=== PATIENT | female | born 1970 | race Caucasian/White ===

== ENCOUNTER 2024-09-28 05:02 | Inpatient (IN) | payer OTHER ==
[2024-09-28] MEDS: HYDROmorphone 1 MG/ML 1 ML SYRINGE IVP STA ×2 (05:48→09:46)
[2024-09-28] MEDS: ACETAMINOPHEN IV (For NPO) 1,000 MG in EMPTY BAG 1 BAG IVPB ONE (06:05)
[2024-09-28 06:47] LABS: Basophils # (A) 0.05 10*3/uL (0.00-0.10); Basophils % (A) 0.5 %; Eosinophils # (A) 0.20 10*3/uL (0.04-0.35); Eosinophils % (A) 2.0 %; HCT 39.2 % (37.2-46.3); HGB 13.5 g/dL (12.0-15.0); Lymphocytes # (A) 2.17 10*3/uL (0.90-5.00); Lymphocytes % (A) 21.6 %; MCH 29.9 pg (27.0-32.0); MCHC 34.4 g/dL (32.0-37.0); MCV 86.7 fL (80.0-97.0); Monocytes # (A) 1.07 10*3/uL (0.20-1.00); Monocytes % (A) 10.6 %; Neutrophils # (A) 6.53 10*3/uL (1.80-7.70); Neutrophils % (A) 65.0 %; Platelet Count 213 10*3/uL (140-440); RBC 4.52 10*6/uL (4.10-5.20); RDW 12.9 % (11.5-14.5); WBC 10.05 10*3/uL (4.50-10.00)
--- NOTE | 2024-09-28 06:55 | XR ---
EXAM: XR Right Knee, 3 Views CLINICAL HISTORY: ITS.REASON XR Reason: pain, swelling TECHNIQUE: Three views of the right knee. COMPARISON: No relevant prior studies available. FINDINGS: Bones/joints: Suprapatellar soft tissue density which may reflect joint effusion and/or soft tissue swelling. Moderate narrowing of the patellofemoral joint with osteophyte formation. Diffuse demineralization of the bones. Moderate narrowing of the tibiofemoral joint with osteophyte formation. No acute fracture. No dislocation. Soft tissues: See above. IMPRESSION: 1. No gross acute bony abnormality. 2. Arthritic changes. 3. Small to moderate joint effusion/suprapatellar swelling
[2024-09-28 07:06] LABS: ALT 34 U/L (4-34); AST 28 U/L (14-36); African American GFR (CKD) >90 (>60 ml/min/1.73 sqM); Albumin 4.3 g/dL (3.5-5.0); Alkaline Phosphatase 102 U/L (38-126); Anion Gap 14 mmol/L; Blood Urea Nitrogen 9 mg/dL (7-17); Calcium 9.3 mg/dL (8.4-10.2); Carbon Dioxide 20 mmol/L (22-30); Chloride 104 mmol/L (98-107); Glucose 167 mg/dL (74-99); Non-African American GFR(CKD) >90 (>60 ml/min/1.73 sqM); Potassium 3.7 mmol/L (3.5-5.1); Sodium 138 mmol/L (137-145); Total Protein 7.7 g/dL (6.3-8.2)
--- NOTE | 2024-09-28 07:30 | US ---
EXAMINATION TYPE: US venous doppler duplex LE RT DATE OF EXAM: 09/28/2024 7:19 AM COMPARISON: NONE CLINICAL INDICATION: Female, 53 years old with history of pain, swelling; Rt leg/knee swelling since Saturday, no personal hx pf dvt, family hx of dvt, no thinners, Pain TECHNIQUE: The lower extremity deep venous system is examined utilizing real time linear array sonog shaggy with graded compression, color doppler sonography, and spectral doppler. SIDE PERFORMED: Right FINDINGS: VESSELS IMAGED: Common Femoral Vein Deep Femoral Vein Greater Saphenous Vein * Femoral Vein Popliteal Vein Small Saphenous Vein * Proximal Calf Veins (* superficial vessels) Right Leg: Negative for DVT, Color Doppler imaging shows patency of the vessels. Spectral waveforms are within normal limits. Calf vs limited IMPRESSION: No ultrasound evidence for deep venous thrombosis. [facility], , 09/28/2024 7:28 AM
[2024-09-28] MEDS ORDERED: NALOXONE 0.4 MG/ML 1 ML VIAL IV PRN (08:30)
--- NOTE | 2024-09-28 08:31 | ED ---
Lower Extremity Injury HPI - General Chief Complaint: Extremity Injury, Lower Stated Complaint: leg pain Time Seen by Provider: 09/28/24 05:29 Source: EMS Mode of arrival: EMS - History of Present Illness Initial Comments: 53-year-old female with recent thyroidectomy who presents to the emergency department reporting right leg pain. States that her pain started over the weekend and has gotten significantly worse to the point where she cannot bear weight on the right lower extremity. She has significant knee swelling. She is concerned for DVT as she recently had surgery. Patient found to have a fever upon arrival. She denies any trauma. No history of blood clots. Patient has not any blood thinners. No other alleviating, precipitating modifying factors - Related Data Home Medications Medication Instructions Recorded Confirmed Atorvastatin [Lipitor] 40 mg PO HS 09/28/24 09/28/24 Dulaglutide [Trulicity] 3 mg SQ FARRAR 09/28/24 09/28/24 Empagliflozin [Jardiance] 25 mg PO DAILY 09/28/24 09/28/24 Ergocalciferol [Vitamin D2 (1250 1,250 mcg PO MO 09/28/24 09/28/24 Mcg = 55975 Iu)] Liothyronine Sodium [Cytomel] 25 mcg PO BID 09/28/24 09/28/24 Metoprolol Tartrate [Lopressor] 50 mg PO BID 09/28/24 09/28/24 Potassium Chloride [Klor-Con M20] 20 meq PO DAILY 09/28/24 09/28/24 buPROPion HCL [Wellbutrin SR] 150 mg PO BID 09/28/24 09/28/24 traMADol HCl [Ultram] 50 mg PO QID PRN 09/28/24 09/28/24 Previous Rx's Medication Instructions Recorded Sennosides [Senokot] 8.6 mg PO BID PRN #90 tab 09/30/24 oxyCODONE-APAP 7.5-325MG [Percocet 1 tab PO Q4HR PRN 3 Days #18 tab 09/30/24 7.5-325 mg] Allergies Allergy/AdvReac Type Severity Reaction Status Date / Time aspirin Allergy Rash/Hives Verified 09/28/24 09:06 hydrochlorothiazide Allergy Anaphylaxis Verified 09/28/24 09:06 iodine Allergy Anaphylaxis Verified 09/28/24 09:06 ketorolac [From Toradol] Allergy Rash/Hives Verified 09/28/24 09:06 Penicillins Allergy Rash/Hives Verified 09/28/24 09:06 Review of Systems ROS Statement: Those systems with pertinent positive or pertinent negative responses have been documented in the HPI. ROS Other: All systems not noted in ROS Statement are negative. General Exam General appearance: alert, in no apparent distress Head exam: Present: atraumatic, normocephalic, normal inspection Eye exam: Present: normal appearance, PERRL, EOMI. Absent: scleral icterus, conjunctival injection, periorbital swelling ENT exam: Present: normal exam, mucous membranes moist Neck exam: Present: normal inspection. Absent: tenderness, meningismus, lymphadenopathy Respiratory exam: Present: normal lung sounds bilaterally. Absent: respiratory distress, wheezes, rales, rhonchi, stridor Cardiovascular Exam: Present: regular rate, normal rhythm, normal heart sounds. Absent: systolic murmur, diastolic murmur, rubs, gallop, clicks GI/Abdominal exam: Present: soft, normal bowel sounds. Absent: distended, tenderness, guarding, rebound, rigid Extremities exam: Present: tenderness (To palpation of the right knee. Large suprapatellar effusion), normal capillary refill. Absent: pedal edema, joint swelling, calf tenderness Back exam: Present: normal inspection Neurological exam: Present: alert, oriented X3, CN II-XII intact Psychiatric exam: Present: normal affect, normal mood Skin exam: Present: warm, dry, intact, normal color. Absent: rash Course Vital Signs 09/28/24 09/28/24 09/28/24 05:07 06:48 08:04 Temperature 100.4 F H 99.8 F H 98.5 F Pulse Rate 97 94 101 H Respiratory 18 17 Rate Blood Pressure 147/75 155/80 144/88 O2 Sat by Pulse 97 96 97 Oximetry 09/28/24 09:45 Temperature Pulse Rate 85 Respiratory 18 Rate Blood Pressure 136/92 O2 Sat by Pulse 97 Oximetry Medical Decision Making - Medical Decision Making Was pt. sent in by a medical professional or institution (, PA, ANIMAL IMPERSONATOR, urgent care, hospital, or shelter...) When possible be specific @ -No Did you speak to anyone other than the patient for history (EMS, parent, family, police, friend...)? What history was obtained from this source @ -Spoke with EMS for history Did you review nursing and triage notes (agree or disagree)? Why? @ -I reviewed and agree with nursing and triage notes Were old charts reviewed (outside hosp., previous admission, EMS record, old EKG, old radiological studies, urgent care reports/EKG's, shelter records)? Report findings @ -No old charts were reviewed Differential Diagnosis (chest pain, altered mental status, abdominal pain women, abdominal pain men, vaginal bleeding, weakness, fever, dyspnea, syncope, headache, dizziness, GI bleed, back pain, seizure, CVA, palpatations, mental health, musculoskeletal)? @ -Differential Musculoskeletal Muscular strain, contusion, ligament sprain, fracture, arthritis, septic arthritis, bursitis, cellulitis, muscle spasm, nerve compression, DVT, arterial occlusion, herpes zoster, electrolyte abnormality, tumor.... This is not meant to be in all inclusive list EKG interpreted by me (3pts min.). @ -Not done X-rays interpreted by me (1pt min.). @ -yes which demonstrates a fusion CT interpreted by me (1pt min.). @ -None done U/S interpreted by me (1pt. min.). @ -Yes which demonstrates no DVT What testing was considered but not performed or refused? (CT, X-rays, U/S, labs)? Why? @ -None What meds were considered but not given or refused? Why? @ -None Did you discuss the management of the patient with other professionals (professionals i.e. , PA, ANIMAL IMPERSONATOR, lab, RT, psych nurse, foster care social worker, gyroscope technician, teacher, lodge officer, case management social worker)? Give summary @ -Spoke with Dr. Preez who will admit the patient Was smoking cessation discussed for >3mins.? @ -No Was critical care preformed (if so, how long)? @ -No Were there social determinants of health that impacted care today? How? (Homelessness, low income, unemployed, alcoholism, drug addiction, transportation, low edu. Level, literacy, decrease access to med. care, correction, rehab)? @ -No Was there de-escalation of care discussed even if they declined (Discuss DNR or withdrawal of care, Hospice)? DNR status @ -No What co-morbidities impacted this encounter? (DM, HTN, Smoking, COPD, CAD, Cancer, CVA, ARF, Chemo, Hep., AIDS, mental health diagnosis, sleep apnea, morbid obesity)? @ -Thyroid cancer Was patient admitted / discharged? Hospital course, mention meds given and route, prescriptions, significant lab abnormalities, going to OR and other pertinent info. @ -Upon arrival patient seen and evaluated in bed 11. Thorough history and physical exam was performed. IV was established. Laboratory studies are performed. X-ray and ultrasound were performed of the patient's right leg. I did perform arthrocentesis. Sample is sent for culture and cell count. I did initiate the patient on cefepime and vancomycin. Patient will be admitted. Spoke with Dr. Perez. Orthopedics will be placed on consult Undiagnosed new problem with uncertain prognosis? @ -No Drug Therapy requiring intensive monitoring for toxicity (Heparin, Nitro, Insulin, Cardizem)? @ -No Were any procedures done? @ -No Diagnosis/symptom? @ -Acute right knee pain, evaluation for septic arthritis Acute, or Chronic, or Acute on Chronic? @ -Acute Uncomplicated (without systemic symptoms) or Complicated (systemic symptoms)? @ -Complicated Side effects of treatment? @ -No Exacerbation, Progression, or Severe Exacerbation? @ -No Poses a threat to life or bodily function? How? (Chest pain, USA, CT, pneumonia, PE, COPD, DKA, ARF, appy, cholecystitis, CVA, Diverticulitis, Homicidal, Suicidal, threat to staff... and all critical care pts) @ -No - Lab Data Result diagrams: 09/30/24 03:26 09/30/24 03:26 Lab Results 09/28/24 09/28/24 09/28/24 Range/Units 06:20 06:20 06:20 WBC 10.05 H (4.50-10.00) 10*3/uL RBC 4.52 (4.10-5.20) 10*6/uL Hgb 13.5 (12.0-15.0) g/dL Hct 39.2 (37.2-46.3) % MCV 86.7 (80.0-97.0) fL MCH 29.9 (27.0-32.0) pg MCHC 34.4 (32.0-37.0) g/dL Plt Count 213 (140-440) 10*3/uL MPV 10.1 (9.5-12.2) fL Immature Gran % (Auto) 0.3 % Neutrophils % 65.0 % Lymphocytes % 21.6 % Monocytes % 10.6 % Eosinophils % 2.0 % Basophils % 0.5 % Immature Gran # 0.03 (0.00-0.04) 10*3/uL Neutrophils # 6.53 (1.80-7.70) 10*3/uL Lymphocytes # 2.17 (0.90-5.00) 10*3/uL Monocytes # 1.07 H (0.20-1.00) 10*3/uL Eosinophils # 0.20 (0.04-0.35) 10*3/uL Basophils # 0.05 (0.00-0.10) 10*3/uL ESR 46 H (0-30) mm/Hr Sodium 138 (137-145) mmol/L Potassium 3.7 (3.5-5.1) mmol/L Chloride 104 (98-107) mmol/L Carbon Dioxide 20 L (22-30) mmol/L Anion Gap 14 mmol/L BUN 9 (7-17) mg/dL Creatinine 0.57 (0.52-1.04) mg/dL Est GFR (CKD-EPI)AfAm >90 (>60 ml/min/1.73 sqM) Est GFR (CKD-EPI)NonAf >90 (>60 ml/min/1.73 sqM) Glucose 167 H (74-99) mg/dL Plasma Lactic Acid Eulalio 1.8 (0.7-2.0) mmol/L Calcium 9.3 (8.4-10.2) mg/dL Total Bilirubin 0.8 (0.2-1.3) mg/dL AST 28 (14-36) U/L ALT 34 (4-34) U/L Alkaline Phosphatase 102 (38-126) U/L C-Reactive Protein 2.5 H (<1.0) mg/dL Total Protein 7.7 (6.3-8.2) g/dL Albumin 4.3 (3.5-5.0) g/dL TSH (0.465-4.680) mIU/L Free T4 (0.78-2.19) ng/dL Fluid Source Fluid Volume mL Fluid Appearance (Clear) Fluid WBC /UL Fluid RBC (Auto) /UL Fld Polynuclear WBCs % % Fluid Lymphocytes % % Fluid Monocytes % % Body Fluid Glucose Source Fluid Glucose mg/dL Body Fluid Protein Source Fluid Total Protein mg/dL 09/28/24 09/28/24 09/28/24 Range/Units 06:20 08:30 08:30 WBC (4.50-10.00) 10*3/uL RBC (4.10-5.20) 10*6/uL Hgb (12.0-15.0) g/dL Hct (37.2-46.3) % MCV (80.0-97.0) fL MCH (27.0-32.0) pg MCHC (32.0-37.0) g/dL Plt Count (140-440) 10*3/uL MPV (9.5-12.2) fL Immature Gran % (Auto) % Neutrophils % % Lymphocytes % % Monocytes % % Eosinophils % % Basophils % % Immature Gran # (0.00-0.04) 10*3/uL Neutrophils # (1.80-7.70) 10*3/uL Lymphocytes # (0.90-5.00) 10*3/uL Monocytes # (0.20-1.00) 10*3/uL Eosinophils # (0.04-0.35) 10*3/uL Basophils # (0.00-0.10) 10*3/uL ESR (0-30) mm/Hr Sodium (137-145) mmol/L Potassium (3.5-5.1) mmol/L Chloride (98-107) mmol/L Carbon Dioxide (22-30) mmol/L Anion Gap mmol/L BUN (7-17) mg/dL Creatinine (0.52-1.04) mg/dL Est GFR (CKD-EPI)AfAm (>60 ml/min/1.73 sqM) Est GFR (CKD-EPI)NonAf (>60 ml/min/1.73 sqM) Glucose (74-99) mg/dL Plasma Lactic Acid Eulalio (0.7-2.0) mmol/L Calcium (8.4-10.2) mg/dL Total Bilirubin (0.2-1.3) mg/dL AST (14-36) U/L ALT (4-34) U/L Alkaline Phosphatase (38-126) U/L C-Reactive Protein (<1.0) mg/dL Total Protein (6.3-8.2) g/dL Albumin (3.5-5.0) g/dL TSH 8.930 H (0.465-4.680) mIU/L Free T4 0.10 L (0.78-2.19) ng/dL Fluid Source Other Fluid Volume Not Measured mL Fluid Appearance Cloudy A (Clear) Fluid WBC 98285 /UL Fluid RBC (Auto) <2000 /UL Fld Polynuclear WBCs % 94 % Fluid Lymphocytes % 1 % Fluid Monocytes % 5 % Body Fluid Glucose Source Body Fluid Fluid Glucose 149 mg/dL Body Fluid Protein Source Body Fluid Fluid Total Protein >3600 mg/dL Disposition Clinical Impression: Knee pain, Fever Disposition: ADMITTED IP TO THIS HOSP Condition: Stable Is patient prescribed a controlled substance at d/c from ED?: No Time of Disposition: 08:29 Decision to Admit Reason: Admit from EC Decision Date: 09/28/24 Decision Time: 08:29
[2024-09-28] MEDS ORDERED: VANCOMYCIN IV PER PHARMACY 1 EACH MISC MISCELLANE PRN (08:43)
[2024-09-28] MEDS ORDERED: DEXTROSE 50% SYRINGE 50 ML IVP PRN ×2 (09:28)
[2024-09-28] MEDS: CEFEPIME 2 GM in SODIUM CHLORIDE 0.9% 100 ML IVPB STA (09:45)
[2024-09-28 09:54] LABS: T4, Free (Free Thyroxine) 0.10 ng/dL (0.78-2.19)
[2024-09-28] MEDS: VANCOMYCIN 2,000 MG in SODIUM CHLORIDE 0.9% 500 ML 500 ML IVPB ONE (10:32)
[2024-09-28 11:58] LABS: Glucose,Whole Blood 162 mg/dL (70-110)
[2024-09-28] MEDS ORDERED: ACETAMINOPHEN TAB 325 MG TAB PO PRN (12:58)
[2024-09-28 13:01] LABS: Glucose,Whole Blood 169 mg/dL (70-110)
[2024-09-28] MEDS: INSULIN LISPRO (HumaLOG) 100 UNIT/ML 10 mL VL SQ SCH (13:06)
[2024-09-28] MEDS: HYDROcodone/APAP 5-325MG 1 EACH TAB PO PRN (13:18)
--- NOTE | 2024-09-28 14:22 | P.CNOR ---
History of Present Illness - [facility] Consult date: 09/28/24 Requesting physician: Lynsey Wheeler Consult reason: joint pain (Right Knee) History of present illness: History of Presenting Illness Patient is a pleasant 53-year-old female who presented to the ER due to increased right lower extremity pain. Patient states that her right knee began to swell on 09/26/2024. She states she attempted to utilize ice th erapy for her symptoms. Patient states the pain increased and she became concerned about DVTs due to family history. Patient states that it became very difficult for her to bear weight or ambulate on the right lower extremity and chose to come into the ER. It is documented that patient was febrile at admission. Patient denies any injury to indicate the onset of her symptoms. Patient does report that she had a thyroidectomy performed in July 2024. Patient does have a medical history of a heart catheterization in May 2023, and diabetes. She does have an orthopedic history of a right knee arthroscopy surgery and chronic low back pain. Patient does report that she lives at home with her spouse and is normally independent. Patient seen and examined in the observation unit. Patient is resting comfortably in bed with her right lower extremity elevated on pillows. There is a dressing to the right lateral knee. Patient does report that the ER physician did aspirate fluid and sent it for labs. Serous drainage noted shadowing on dressing. Patient does states she has numbness and tingling that radiates down her right lower extremity. Patient states she is unable to flex or extend her knee on her own. She states she has been unable to bear weight due to increased pain. Patient is currently afebrile. X-rays of the right knee taken on 09/28/2024 demonstrates no gross acute bony abnormality. There are arthritic changes. Small to moderate joint effusion/suprapatellar swelling is noted. Ultrasound venous Doppler of the right lower extremity taken on 09/28/2024 is negative for DVT. Review of Systems Pertinent positives and negatives as discussed in HPI, a complete review of systems was performed and all other systems are negative. Physical Examination: Right lower extremity: Inspection: Moderate edema noted of the right knee, dressing to the right lateral knee present from aspiration, serous drainage noted on dressing. Sensation: Hypersensitivity to the right lower extremity Palpation: Very tender to palpation over the right patella and surrounding area of the right knee. Range of motion: Patient does have full range of motion bilateral upper and lower extremities on exam Motor: Right: Hip flexor 4/5, knee flexor 3/5, ankle dorsiflexor 4-/5, ankle plantarflexion 4-/5 and extensor hallucis 4-/5. Neurovascular: Radial pulse intact, 2+ bilaterally. Cap refill under 3 seconds in digits upper extremities. Assessment Osteoarthritis of the right knee Possible sepsis of the right knee Right knee pain Right lower extremity radiculopathy with weakness Multiple medical comorbidities Plan At this time, we recommend surgical intervention of a right knee arthroscopic irrigation and debridement with synovectomy. This was discussed with the patient and she agrees to proceed with the procedure. Surgery has been boarded for , 09/29/24. Informed patient that she will be NPO at midnight, she verbalizes understanding. 1. Consult placed for , Infectious Disease, for possible sepsis of the right knee. Labs of fluid aspiration of the right knee are pending. 2. Appreciate medical management 3. Pain management - Continue with IV dilaudid and oral [place] prn, Utilize ice therapy 20min every hour as needed. 4. GI prophylaxis - senna 5. DVT prophylaxis - Hold Lovenox tomorr morning 09/29/24. 6. PT/OT - NWB of the right lower extremity at this time. 7. Appreciate consult. I reviewed and discussed this case with my attending Dr. Horta, whom has reviewed this chart and films and is in agreement with assessment and plan of care as outlined above. I have personally seen and examined the patient, performed the documentation and the assessment and plan as written. Number of minutes spent on the visit: 30m. Medications and Allergies Home Medications Medication Instructions Recorded Confirmed Type Atorvastatin [Lipitor] 40 mg PO HS 09/28/24 09/28/24 History Dulaglutide [Trulicity] 3 mg SQ FARRAR 09/28/24 09/28/24 History Empagliflozin [Jardiance] 25 mg PO DAILY 09/28/24 09/28/24 History Ergocalciferol [Vitamin D2 (1250 1,250 mcg PO MO 09/28/24 09/28/24 History Mcg = 03014 Iu)] Liothyronine Sodium [Cytomel] 25 mcg PO BID 09/28/24 09/28/24 History Metoprolol Tartrate [Lopressor] 50 mg PO BID 09/28/24 09/28/24 History Potassium Chloride [Klor-Con M20] 20 meq PO DAILY 09/28/24 09/28/24 History buPROPion HCL [Wellbutrin SR] 150 mg PO BID 09/28/24 09/28/24 History traMADol HCl [Ultram] 50 mg PO QID PRN 09/28/24 09/28/24 History Allergies Allergy/AdvReac Type Severity Reaction Status Date / Time aspirin Allergy Rash/Hives Verified 09/28/24 09:06 hydrochlorothiazide Allergy Anaphylaxis Verified 09/28/24 09:06 iodine Allergy Anaphylaxis Verified 09/28/24 09:06 ketorolac [From Toradol] Allergy Rash/Hives Verified 09/28/24 09:06 Penicillins Allergy Rash/Hives Verified 09/28/24 09:06 Results - Labs Labs: Abnormal Lab Results - Last 24 Hours (Table) 09/28/24 09/28/24 09/28/24 Range/Units 06:20 06:20 06:20 WBC 10.05 H (4.50-10.00) 10*3/uL Monocytes # 1.07 H (0.20-1.00) 10*3/uL ESR 46 H (0-30) mm/Hr Carbon Dioxide 20 L (22-30) mmol/L Glucose 167 H (74-99) mg/dL POC Glucose (mg/dL) (70-110) mg/dL C-Reactive Protein 2.5 H (<1.0) mg/dL TSH 8.930 H (0.465-4.680) mIU/L Free T4 0.10 L (0.78-2.19) ng/dL 09/28/24 09/28/24 Range/Units 11:54 13:00 WBC (4.50-10.00) 10*3/uL Monocytes # (0.20-1.00) 10*3/uL ESR (0-30) mm/Hr Carbon Dioxide (22-30) mmol/L Glucose (74-99) mg/dL POC Glucose (mg/dL) 162 H 169 H (70-110) mg/dL C-Reactive Protein (<1.0) mg/dL TSH (0.465-4.680) mIU/L Free T4 (0.78-2.19) ng/dL H & H 09/28/24 Range/Units 06:20 Hgb 13.5 (12.0-15.0) g/dL Hct 39.2 (37.2-46.3) % Result Diagrams: 09/28/24 06:20 09/28/24 06:20
[2024-09-28] MEDS: HYDROmorphone 1 MG/ML 1 ML SYRINGE IVP PRN ×2 (15:30→20:18)
[2024-09-28 16:39] LABS: Appearance,BF Cloudy (Clear)
--- NOTE | 2024-09-28 17:08 | P.HPIM ---
History of Present Illness H&P Date: 09/28/24 History of present illness; Patient is a 53-year-old female with hypertension, CHF, diabetes mellitus type 2, hyperlipidemia, thyroidectomy in July who presents with swollen painful right knee. Symptoms began Saturday with a small amount of swelling and continue to progress with increasing swelling and tingling down leg to toes. She subsequently was unable to walk and put pressure on the leg. She is also unable to bend knee without pain. She states she had no known trauma, or known triggers. She tried ice and tramadol which did not improve pain or swelling. She said a similar swelling happened only once with trauma after a basketball injury. No history of IV drug use, unprotected sex, hepatitis exposure. She does have history of knee arthroscopy over 20 years ago. Patient states she also had thyroidectomy in July and is slated to begin treatment for thyroid cancer next month. She does endorse a fever upon admission. Patient reports absence of chest pain, dyspnea, cough, abdominal pain, and dysuria. Spoke with the ER physician, patient admission was accepted by internal medicine service for treatment. REVIEW OF SYSTEMS: Pertinent positives and negatives noted in HPI. PHYSICAL EXAMINATION: VITAL SIGNS: Reviewed GENERAL: Resting comfortably in bed. EYES: PERRL, no scleral injection or icterus. HENT: Normocephalic, atraumatic, hearing grossly intact, moist mucous membranes. CARDIOVASCULAR: S1 and S2 present. No murmurs, rubs, or gallops. PULMONARY: Chest is clear to auscultation, no wheezing, rhonchi, or crackles. ABDOMEN: Soft, nontender, nondistended. No palpable organomegaly. NEUROLOGICAL: Alert and oriented. Gross neurological examination with no appa rent focal deficits. MSK: Right knee prepatellar effusion, tender, nonerythematous. No other abnorm alities. Cannot fully bend. EXTREMITIES: No pedal edema. SKIN: No apparent rashes. ER FINDINGS: Labs significant for WBC 10.0, hemoglobin 13.5, sodium 138, potassium 3.7, bicarb 20, glucose 167, CRP 2.5 X-ray of right knee, no gross acute bony abnormality, arthritic changes, small to moderate joint effusion/suprapatellar swelling Ultrasound venous Doppler duplex lower extremity right with no evidence of DVT ASSESSMENT AND PLAN: In summary, patient is a 53-year-old female with hypertension, CHF, diabetes mellitus type 2, hyperlipidemia who presents with swollen painful right knee. # Septic arthritis of [place] joint #Osteoarthritis of the right knee #Right lower extremity radiculopathy with weakness X-ray of right knee small to moderate joint effusion/suprapatellar swelling S/p aspiration in ER Fluid cell count, total protein, glucose, culture ordered Begin vancomycin, dosed per pharmacy Orthopedic surgery consulted, planned right knee atheroscopic irrigation and debridement with synovectomy N.p.o. after midnight ID consulted PT OT consulted #Diabetes mellitus type 2 Begin low-dose sliding scale, and Accu-Cheks Hold home medications Monitor for hypoglycemia Chronic Medical Conditions: Hypertension CHF Diabetes mellitus type 2 Hyperlipidemia -Resume home medications DVT ppx: Subq Lovenox 40 meq daily Code status: Full code F: P.o. E: Replete as needed N: Heart healthy diet, n.p.o. after midnight A: Ambulatory Anticipated discharge time and place: Pending clinical course Jake Mathis MD Internal Medicine Resident, PGY1 Dictation was produced using [employer] dictation software. Please excuse any grammatical, word or spelling errors. I saw and evaluated the patient during the wright and critical portions of this encounter, and discussed the case in detail with the resident author of this note, I agree with the Assessment and Plan, and my changes, if any, are highlighted in blue. Medications and Allergies Home Medications Medication Instructions Recorded Confirmed Type Atorvastatin [Lipitor] 40 mg PO HS 09/28/24 09/28/24 History Dulaglutide [Trulicity] 3 mg SQ FARRAR 09/28/24 09/28/24 History Empagliflozin [Jardiance] 25 mg PO DAILY 09/28/24 09/28/24 History Ergocalciferol [Vitamin D2 (1250 1,250 mcg PO MO 09/28/24 09/28/24 History Mcg = 34284 Iu)] Liothyronine Sodium [Cytomel] 25 mcg PO BID 09/28/24 09/28/24 History Metoprolol Tartrate [Lopressor] 50 mg PO BID 09/28/24 09/28/24 History Potassium Chloride [Klor-Con M20] 20 meq PO DAILY 09/28/24 09/28/24 History buPROPion HCL [Wellbutrin SR] 150 mg PO BID 09/28/24 09/28/24 History traMADol HCl [Ultram] 50 mg PO QID PRN 09/28/24 09/28/24 History Allergies Allergy/AdvReac Type Severity Reaction Status Date / Time aspirin Allergy Rash/Hives Verified 09/28/24 09:06 hydrochlorothiazide Allergy Anaphylaxis Verified 09/28/24 09:06 iodine Allergy Anaphylaxis Verified 09/28/24 09:06 ketorolac [From Toradol] Allergy Rash/Hives Verified 09/28/24 09:06 Penicillins Allergy Rash/Hives Verified 09/28/24 09:06 Physical Exam Osteopathic Statement: *. No significant issues noted on an osteopathic structural exam other than those noted in the History and Physical/Consult. Vitals: Vital Signs Temp Pulse Resp BP Pulse Ox 09/28/24 08:04 98.5 F 101 H 17 144/88 97 09/28/24 06:48 99.8 F H 94 155/80 96 09/28/24 05:07 100.4 F H 97 18 147/75 97 Intake and Output 09/27/24 09/28/24 09/28/24 22:59 06:59 14:59 Other: Weight 101.151 kg Results CBC & Chem 7: 09/28/24 06:20 09/28/24 06:20 Labs: Abnormal Lab Results - Last 24 Hours (Table) 09/28/24 09/28/24 Range/Units 06:20 06:20 WBC 10.05 H (4.50-10.00) 10*3/uL Monocytes # 1.07 H (0.20-1.00) 10*3/uL Carbon Dioxide 20 L (22-30) mmol/L Glucose 167 H (74-99) mg/dL C-Reactive Protein 2.5 H (<1.0) mg/dL
[2024-09-28] MEDS ORDERED: LIDOCAINE 1% (10MG/ML) FOR IV START INTRADERMA PRN (17:24)
[2024-09-28] MEDS: LACTATED RINGERS 1,000 ML IV SCH (17:34)
[2024-09-28] MEDS: DEXAMETHASONE SOD PHOSPHATE 4 MG/ML 1 ML VIAL IV ONE (17:35)
[2024-09-28 17:36] LABS: Glucose,Whole Blood 250 mg/dL (70-110)
[2024-09-28] MEDS: MORPHINE SULFATE 2 MG/ML SYRINGE IVP STA (17:46)
[2024-09-28] MEDS ORDERED: HYDROmorphone PCA 10 MG/50 ML BAG IV PRN (17:52)
[2024-09-28 18:08] LABS: Glucose, BF Source Body Fluid; Glucose, Body Fluid 149 mg/dL; T. Protein, Body Fluid Source Body Fluid; Total Protein, Body Fluid >3600 mg/dL
[2024-09-28 21:41] LABS: Glucose,Whole Blood 192 mg/dL (70-110)
[2024-09-28] MEDS: buPROPion SR 150 MG TABLET.ER PO SCH (21:46)
[2024-09-28] MEDS: ATORVASTATIN 40 MG TAB PO SCH (21:46)
[2024-09-28] MEDS: VANCOMYCIN 1,750 MG in SODIUM CHLORIDE 0.9% 500 ML 500 ML IVPB SCH (21:46)
[2024-09-28] MEDS: METOPROLOL TARTRATE 50 MG TAB PO SCH (21:47)
[2024-09-28] MEDS: LIOTHYRONINE SODIUM 5 MCG TAB PO SCH (21:47)
--- NOTE | 2024-09-28 22:17 | P.CONS ---
History of Present Illness - Reason for Consult Consult date: 09/28/24 Possible right septic knee Requesting physician: Leona Porter - Chief Complaint Right knee pain and swelling x 3 days - History of Present Illness Patient is a 53-year-old female with a past medical history significant for type IV diabetes mellitus hypertension CHF history of thyroidectomy presenting to the hospital for evaluation of right knee pain and swelling that apparently has been going on for the last 3 days patient denies any history of any trauma mention she noticed the pain when she was walking in [employer] shopping and subsequent noticed having worsening pain with associated swelling patient describes the pain to be sharp almost under 10 severity and unable to bear any weight on the right leg patient on presentation to the hospital did have a temperature of 100.4 F patient was tachycardic but not hypotensive or hypoxic did have white count 10.05 BUN/creatinine electrolytes and liver enzymes are normal patient has been evaluated by orthopedics and did have aspiration of the right knee fluid was cloudy but white count was 00672 with 90% PMN blood and fluid culture has been obtained patient was empirically started on vancomycin infectious disease was consulted for further management of antibiotic therapy Review of Systems Positive point and negatives has been mentioned in the HPI, complete review of systems was performed and all other systems are negative Past Medical History Smoking Status: Unknown if ever smoked Medications and Allergies Home Medications Medication Instructions Recorded Confirmed Type Atorvastatin [Lipitor] 40 mg PO HS 09/28/24 09/28/24 History Dulaglutide [Trulicity] 3 mg SQ FARRAR 09/28/24 09/28/24 History Empagliflozin [Jardiance] 25 mg PO DAILY 09/28/24 09/28/24 History Ergocalciferol [Vitamin D2 (1250 1,250 mcg PO MO 09/28/24 09/28/24 History Mcg = 86553 Iu)] Liothyronine Sodium [Cytomel] 25 mcg PO BID 09/28/24 09/28/24 History Metoprolol Tartrate [Lopressor] 50 mg PO BID 09/28/24 09/28/24 History Potassium Chloride [Klor-Con M20] 20 meq PO DAILY 09/28/24 09/28/24 History buPROPion HCL [Wellbutrin SR] 150 mg PO BID 09/28/24 09/28/24 History traMADol HCl [Ultram] 50 mg PO QID PRN 09/28/24 09/28/24 History Allergies Allergy/AdvReac Type Severity Reaction Status Date / Time aspirin Allergy Rash/Hives Verified 09/28/24 09:06 hydrochlorothiazide Allergy Anaphylaxis Verified 09/28/24 09:06 iodine Allergy Anaphylaxis Verified 09/28/24 09:06 ketorolac [From Toradol] Allergy Rash/Hives Verified 09/28/24 09:06 Penicillins Allergy Rash/Hives Verified 09/28/24 09:06 Physical Exam Vitals: Vital Signs Temp Pulse Resp BP Pulse Ox 09/28/24 13:52 99 F 82 135/82 97 09/28/24 09:45 85 18 136/92 97 09/28/24 08:04 98.5 F 101 H 17 144/88 97 09/28/24 06:48 99.8 F H 94 155/80 96 09/28/24 05:07 100.4 F H 97 18 147/75 97 Intake and Output 09/28/24 09/28/24 09/28/24 06:59 14:59 22:59 Other: Weight 101.151 kg 101.151 kg GENERAL DESCRIPTION: Middle-age female lying in bed, no distress. No tachypnea or accessory muscle of respiration use. HEENT: Shows Pallor , no scleral icterus. Oral mucous membrane is dry. No pharyngeal erythema or thrush NECK: Trachea central, no thyromegaly. LUNGS: Unlabored breathing. Clear to auscultation anteriorly. No wheeze or crackle. HEART: S1, S2, regular rate and rhythm. No loud murmur ABDOMEN: Soft, no tenderness , guarding or rigidity, no organomegaly EXTREMITIES: Right knee did have swelling warmth tenderness no significant redness or any drainage SKIN: No rash, no masses palpable. NEUROLOGICAL: The patient is awake, alert, oriented x3, mood and affect normal. Results CBC & Chem 7: 09/28/24 06:20 09/28/24 06:20 Labs: Abnormal Lab Results - Last 24 Hours (Table) 09/28/24 09/28/24 09/28/24 Range/Units 06:20 06:20 06:20 WBC 10.05 H (4.50-10.00) 10*3/uL Monocytes # 1.07 H (0.20-1.00) 10*3/uL ESR 46 H (0-30) mm/Hr Carbon Dioxide 20 L (22-30) mmol/L Glucose 167 H (74-99) mg/dL POC Glucose (mg/dL) (70-110) mg/dL C-Reactive Protein 2.5 H (<1.0) mg/dL TSH 8.930 H (0.465-4.680) mIU/L Free T4 0.10 L (0.78-2.19) ng/dL 09/28/24 09/28/24 Range/Units 11:54 13:00 WBC (4.50-10.00) 10*3/uL Monocytes # (0.20-1.00) 10*3/uL ESR (0-30) mm/Hr Carbon Dioxide (22-30) mmol/L Glucose (74-99) mg/dL POC Glucose (mg/dL) 162 H 169 H (70-110) mg/dL C-Reactive Protein (<1.0) mg/dL TSH (0.465-4.680) mIU/L Free T4 (0.78-2.19) ng/dL Assessment and Plan (1) SIRS (systemic inflammatory response syndrome) Current Visit: Yes Status: Acute Code(s): R65.10 - SIRS OF NON-INFECTIOUS ORIGIN W/O ACUTE ORGAN DYSFUNCTION SNOMED Code(s): 151836769 Plan: 1patient presents to hospital with right knee pain swelling in this patient also have a low-grade fever mildly elevated white count concern for possible septic arthritis patient is status post aspiration of the right knee which was cloudy however the white count is only 24,000 and the typical knee septic arthritis white count usually elevated more than 50,000 making septic arthritis to be less likely but not entirely excluded 2-we will wait for the crystal as well as the culture on the right knee aspirate 3-continue with empiric vancomycin while waiting for the culture to finalize We will follow on clinical condition and cultures to further adjust medication if needed Thank you for this consultation we will follow the patient along with you Dictation was produced using [employer] software. please excuse any grammatical, word or spelling errors. Time with Patient: Greater than 30
[2024-09-29] MEDS: HYDROcodone/APAP 5-325MG 1 EACH TAB PO PRN (00:12)
[2024-09-29] MEDS: VANCOMYCIN 1,750 MG in SODIUM CHLORIDE 0.9% 500 ML 500 ML IVPB SCH (03:33)
[2024-09-29 05:53] LABS: Basophils # (A) 0.01 10*3/uL (0.00-0.10); Basophils % (A) 0.1 %; Eosinophils # (A) 0.00 10*3/uL (0.04-0.35); Eosinophils % (A) 0.0 %; HCT 37.7 % (37.2-46.3); HGB 12.7 g/dL (12.0-15.0); Lymphocytes # (A) 1.38 10*3/uL (0.90-5.00); Lymphocytes % (A) 19.0 %; MCH 29.9 pg (27.0-32.0); MCHC 33.7 g/dL (32.0-37.0); MCV 88.7 fL (80.0-97.0); Monocytes # (A) 0.69 10*3/uL (0.20-1.00); Monocytes % (A) 9.5 %; Neutrophils # (A) 5.16 10*3/uL (1.80-7.70); Neutrophils % (A) 70.9 %; Platelet Count 221 10*3/uL (140-440); RBC 4.25 10*6/uL (4.10-5.20); RDW 12.6 % (11.5-14.5); WBC 7.28 10*3/uL (4.50-10.00)
[2024-09-29 06:12] LABS: Glucose,Whole Blood 183 mg/dL (70-110)
[2024-09-29 06:19] LABS: African American GFR (CKD) >90 (>60 ml/min/1.73 sqM); Anion Gap 10 mmol/L; Blood Urea Nitrogen 5 mg/dL (7-17); Calcium 8.4 mg/dL (8.4-10.2); Carbon Dioxide 24 mmol/L (22-30); Chloride 105 mmol/L (98-107); Glucose 176 mg/dL (74-99); Non-African American GFR(CKD) >90 (>60 ml/min/1.73 sqM); Potassium 4.3 mmol/L (3.5-5.1); Sodium 139 mmol/L (137-145)
[2024-09-29] MEDS ORDERED: fentaNYL (PF) 50 MCG/ML 2 ML AMP IV PRN (07:00)
[2024-09-29] MEDS: POTASSIUM CHLORIDE ER 20 MEQ TAB.ER PO SCH (08:43)
[2024-09-29] MEDS: IV FLUID CONTINUATION 1,000 ML IV ONE (09:10)
[2024-09-29 09:23] LABS: Glucose,Whole Blood 161 mg/dL (70-110)
[2024-09-29] MEDS ORDERED: MIDAZOLAM 2 MG/2 ML VIAL ONE (10:15)
[2024-09-29] MEDS ORDERED: fentaNYL (PF) 50 MCG/ML 2 ML AMP ONE (10:15)
[2024-09-29] MEDS ORDERED: LIDOCAINE 1% INJ 10MG/ML (20 ML MDV) ONE (10:15)
[2024-09-29] MEDS ORDERED: PROPOFOL 10 MG/ML 20 ML VIAL IV ONE (10:15)
[2024-09-29] MEDS ORDERED: hydrALAZINE HCL 20 MG/ML 1 ML VIAL ONE (10:15)
--- NOTE | 2024-09-29 11:16 | P.OP ---
Date of Procedure: 09/29/24 Preoperative Diagnosis: Right knee synovitisseptic knee versus inflammatory arthritis Postoperative Diagnosis: Right knee pseudogout/chondrocalcinosis/synovitis Procedure(s) Performed: Right knee arthroscopic synovectomy of the medial, lateral, and patellofemoral compartments Arthroscopic irrigation and debridement right knee Partial lateral meniscectomy right knee Anesthesia: KRAIG Surgeon: Cruzito Horta Estimated Blood Loss (ml): 10 Pathology: other (Fluid for crystal analysis/cultures) Condition: stable Disposition: PACU Indications for Procedure: The patient is a 53-year-old female who presents with extreme right knee pain along with a large effusion and laboratory studies consistent with a right septic knee versus inflammatory arthritis. A discussion of the risks and benefits of operative intervention to include arthroscopic irrigation and debridement was discussed. She opted to proceed. Operative risks include persistence of inflammation/infection and possible need for subsequent procedures was discussed. Informed consent was obtained. Operative Findings: As below Description of Procedure: The patient was brought to the operating room, and after induction of general anesthesia examined the right knee. Collaterals were stable, Ruchi was negative, and posterior drawer was negative. The right lower extremity was prepped and draped in a normal fashion. A superior lateral portal was made through a 3 mm skin incision superior and lateral to the patella. This was used for outflow. A large effusion was encountered. This fluid was collected and sent for crystal analysis along with Gram stain and cultures. A lateral portal was made through a 5 mm vertical skin incision lateral to the patella tendon above the joint line. Diagnostic arthroscopy was performed. On inspection of the medial compartment, there was marked synovitis along with chondrocalcinosis of the medial meniscus in the distal medial femoral condyle. Wide synovectomy of the medial, lateral, and patellofemoral compartments was then performed. I did debride some of the calcium pyrophosphate deposition. Grade 3 chondral changes were noted diffusely in the medial compartment. On inspection of the notch, the anterior cruciate ligament appeared to be intact. On inspection of the lateral compartment, again there is marked synovitis. A flap tear involving the posterior horn of the lateral meniscus was noted in the white-red junction. This debrided back to stable base with straight baskets and a motorized shaver. Grade 3/4 chondral changes were noted involving the distal medial portion of the lateral femoral condyle. On inspection of the patellofemoral articulation, again there was marked synovitis. Grade 2-3 chondral changes were noted diffusely. The gutters were clear debris. The knee was then thoroughly irrigated. The portals were closed with Steri-Strips. A sterile dressing was applied in addition to a compression stocking. The patient was awoken from general anesthesia and transferred to recovery room in good condition. Blood loss was estimated at 10 mL. No complications were incurred.
[2024-09-29 11:22] LABS: Glucose,Whole Blood 165 mg/dL (70-110)
[2024-09-29] MEDS: ENOXAPARIN 40 MG/0.4 ML SYRINGE SQ SCH (11:25)
[2024-09-29] MEDS: HYDROmorphone 0.5 MG/0.5 ML SYRINGE IVP PRN (11:36)
--- NOTE | 2024-09-29 14:48 | P.PN ---
Subjective Progress Note Date: 09/29/24 Principal diagnosis: Right knee pain and swelling x 3 days Patient is a 53-year-old female with a past medical history significant for type IV diabetes mellitus hypertension CHF history of thyroidectomy presenting to the hospital for evaluation of right knee pain and swelling that apparently has been going on for the last 3 days patient denies any history of any trauma mention she noticed the pain when she was walking in [employer] shopping and subsequent noticed having worsening pain with associated swelling patient describes the pain to be sharp almost under 10 severity and unable to bear any weight on the right leg patient on presentation to the hospital did have a temperature of 100.4 F patient was tachycardic but not hypotensive or hypoxic did have white count 10.05 BUN/creatinine electrolytes and liver enzymes are normal patient has been evaluated by orthopedics and did have aspiration of the right knee fluid was cloudy but white count was 11686 with 90% PMN blood and fluid culture has been obtained patient was empirically started on vancomycin infectious disease was consulted for further management of antibiotic therapy On today's evaluation that is 09/29/2024, she does have improvement of knee pain preoperatively with analgesics. She is still unable to flex her knee. Her fever has improved from yesterday and is 97.8 this morning. And she is SpO2 saturation 99% on room air. Denies any other chest pain, dyspnea, nausea, vomiting or diarrhea. WBC improved 7.28, BUN 5, creatinine 0.49. She is planned to proceed with surgical intervention today for synovectomy and irrigation right knee. Objective - Vital Signs Vital signs: Vital Signs Temp 97.0 F L 09/29/24 11:15 Pulse 86 09/29/24 14:24 Resp 16 09/29/24 14:24 BP 122/73 09/29/24 14:24 Pulse Ox 99 09/29/24 14:24 FiO2 Intake & Output 09/28/24 09/29/24 09/29/24 18:59 06:59 18:59 Intake Total 100 900 Output Total 10 Balance 100 890 Weight 101.151 kg Intake: IV 900 Oral 100 Output: Estimated Blood Loss 10 Other: Voiding Method Toilet # Voids 1 - Exam GENERAL DESCRIPTION: Middle-age female lying in bed, no distress. No tachypnea or accessory muscle of respiration use. HEENT: Shows Pallor , no scleral icterus. Oral mucous membrane is dry. No pharyngeal erythema or thrush NECK: Trachea central, no thyromegaly. LUNGS: Unlabored breathing. Clear to auscultation anteriorly. No wheeze or crackle. HEART: S1, S2, regular rate and rhythm. No loud murmur ABDOMEN: Soft, no tenderness , guarding or rigidity, no organomegaly EXTREMITIES: Right knee did have swelling warmth tenderness no significant redness or any drainage SKIN: No rash, no masses palpable. NEUROLOGICAL: The patient is awake, alert, oriented x3, mood and affect normal. - Labs CBC & Chem 7: 09/30/24 03:26 09/30/24 03:26 Labs: Abnormal Lab Results - Last 24 Hours (Table) 09/28/24 09/28/24 09/28/24 Range/Units 08:30 17:34 21:39 Eosinophils # (0.04-0.35) 10*3/uL BUN (7-17) mg/dL Creatinine (0.52-1.04) mg/dL Glucose (74-99) mg/dL POC Glucose (mg/dL) 250 H 192 H (70-110) mg/dL Fluid Appearance Cloudy A (Clear) 09/29/24 09/29/24 09/29/24 Range/Units 05:39 05:39 06:11 Eosinophils # 0.00 L (0.04-0.35) 10*3/uL BUN 5 L (7-17) mg/dL Creatinine 0.49 L (0.52-1.04) mg/dL Glucose 176 H (74-99) mg/dL POC Glucose (mg/dL) 183 H (70-110) mg/dL Fluid Appearance (Clear) 09/29/24 09/29/24 Range/Units 09:22 11:21 Eosinophils # (0.04-0.35) 10*3/uL BUN (7-17) mg/dL Creatinine (0.52-1.04) mg/dL Glucose (74-99) mg/dL POC Glucose (mg/dL) 161 H 165 H (70-110) mg/dL Fluid Appearance (Clear) Microbiology - Last 24 Hours (Table) 09/28/24 08:30 Gram Stain - Preliminary Aspirate Body Fluid Culture - Preliminary Assessment and Plan (1) SIRS (systemic inflammatory response syndrome) Current Visit: Yes Status: Acute Code(s): R65.10 - SIRS OF NON-INFECTIOUS ORIGIN W/O ACUTE ORGAN DYSFUNCTION SNOMED Code(s): 423683547 Plan: 1patient presents to hospital with right knee pain swelling in this patient also have a low-grade fever mildly elevated white count concern for possible septic arthritis patient is status post aspiration of the right knee which was cloudy however the white count is only 24,000 and the typical knee septic arthritis white count usually elevated more than 50,000 making septic arthritis to be less likely but not entirely excluded 2-we will wait for the crystal as well as the culture on the right knee aspirate, suspecting pseudogout/chondrocalcinosis/synovitis Dictation was produced using [employer] dictation software. please excuse any grammatical, word or spelling errors. Jake Mathis MD Internal Medicine Resident, PGY2 Infectious disease service Patient was seen and examined and care discussed with the resident physician Patient operative findings are not suggestive of septic arthritis we will get the patient on vancomycin perioperatively because of the surgical intervention however there will be no need for IV antibiotic therapy on discharge darrin arenas MD Time with Patient: Less than 30
[2024-09-29] MEDS: ONDANSETRON 4 MG/2 ML VIAL IVP STA (15:10)
[2024-09-29 17:09] LABS: Synovial Fld Crystals CA Pyrophosphat (None Seen)
[2024-09-29 18:23] LABS: Glucose,Whole Blood 280 mg/dL (70-110)
[2024-09-29] MEDS ORDERED: IBUPROFEN 400 MG TAB PO PRN (19:19)
--- NOTE | 2024-09-29 19:47 | P.PN ---
Subjective Progress Note Date: 09/29/24 Subjective: Patient seen and examined at bedside. No acute events overnight. Saw pt after OR washout of right knee and had no complaints at that time. Pertinent positives and negatives as discussed above, a complete review of systems was performed and all other systems are negative. Vitals: Signs Reviewed Physical Exam: General: nontoxic, no distress, appears at stated age Derm: warm, dry, intact Head: atraumatic, normocephalic, symmetric Eyes: EOMI, anicteric sclera Mouth: no lip lesion, mucus membranes moist Extremities: no gross muscle atrophy, no edema, no contractures, right extremity bandaged. Neuro: Alert, Oriented, CNII-XII grossly intact Psych: well appearing, appropriate affect Data Received Today: Pertinent Labs: WBC 7.28, hgb 12.7, hct 37.7, plt 221, na 139, k 4.3, BUN 5, cr 0.49 Imaging: X-ray of right knee shows no acute fracture, arthritic changes and small to moderate joint effusion. Blood culture shows NGTD at 24 hours. Assessment and Plan: # Pseudogout of right knee found s/p OR washout #Osteoarthritis of the right knee #Right lower extremity radiculopathy with weakness X-ray of right knee small to moderate joint effusion/suprapatellar swelling S/p aspiration in ER - Right knee atheroscopic irrigation and debridement with synovectomy completed today, found to have psuedogout and antibiotics discontinued ID consulted, recs appreciated PT OT consulted - Pain control: Dilaudid [employer] and Dilaudid as needed-discontinued and replaced with Tylenol as needed ibuprofen as needed #Diabetes mellitus type 2 Begin low-dose sliding scale, and Accu-Cheks Hold home medications Monitor for hypoglycemia Chronic Medical Conditions: Hypertension CHF Diabetes mellitus type 2 Hyperlipidemia -Resume home medications DVT ppx: Held for procedure Code status: Full code Anticipated discharge place: Home Anticipated discharge time: 24-48 hours Pearl Little DO PGY-1 IM Dictation was produced using [employer] dictation software. please excuse any grammatical, word or spelling errors I saw and evaluated the patient during the wright and critical portions of this encounter, and discussed the case in detail with the resident author of this note, I agree with the Assessment and Plan, and my changes, if any, are highlighted in blue. Objective - Vital Signs Vital signs: Vital Signs Temp 98.1 F 09/29/24 18:20 Pulse 84 09/29/24 18:20 Resp 16 09/29/24 18:20 BP 112/74 09/29/24 18:20 Pulse Ox 99 09/29/24 18:20 FiO2 Intake & Output 09/29/24 09/29/24 09/30/24 06:59 18:59 06:59 Intake Total 100 900 Output Total 10 Balance 100 890 Intake: IV 900 Oral 100 Output: Estimated Blood Loss 10 Other: Voiding Method Toilet Toilet # Voids 1 1 - Labs CBC & Chem 7: 09/29/24 05:39 09/29/24 05:39 Labs: Abnormal Lab Results - Last 24 Hours (Table) 09/28/24 09/29/24 09/29/24 Range/Units 21:39 05:39 05:39 Eosinophils # 0.00 L (0.04-0.35) 10*3/uL BUN 5 L (7-17) mg/dL Creatinine 0.49 L (0.52-1.04) mg/dL Glucose 176 H (74-99) mg/dL POC Glucose (mg/dL) 192 H (70-110) mg/dL Synovial Crystals (None Seen) 09/29/24 09/29/24 09/29/24 Range/Units 06:11 09:22 11:10 Eosinophils # (0.04-0.35) 10*3/uL BUN (7-17) mg/dL Creatinine (0.52-1.04) mg/dL Glucose (74-99) mg/dL POC Glucose (mg/dL) 183 H 161 H (70-110) mg/dL Synovial Crystals CA Pyrophosphat A (None Seen) 09/29/24 09/29/24 Range/Units 11:21 18:23 Eosinophils # (0.04-0.35) 10*3/uL BUN (7-17) mg/dL Creatinine (0.52-1.04) mg/dL Glucose (74-99) mg/dL POC Glucose (mg/dL) 165 H 280 H (70-110) mg/dL Synovial Crystals (None Seen) Microbiology - Last 24 Hours (Table) 09/28/24 09:23 Blood Culture - Preliminary Blood 09/28/24 08:30 Gram Stain - Preliminary Aspirate Body Fluid Culture - Preliminary
[2024-09-29 20:24] LABS: Glucose,Whole Blood 179 mg/dL (70-110)
[2024-09-30] MEDS: HYDROcodone/APAP 7.5-325MG 1 EACH TAB PO PRN (01:09)
[2024-09-30 03:42] LABS: Basophils # (A) 0.03 10*3/uL (0.00-0.10); Basophils % (A) 0.3 %; Eosinophils # (A) 0.01 10*3/uL (0.04-0.35); Eosinophils % (A) 0.1 %; HCT 33.5 % (37.2-46.3); HGB 11.2 g/dL (12.0-15.0); Lymphocytes # (A) 2.84 10*3/uL (0.90-5.00); Lymphocytes % (A) 28.1 %; MCH 29.9 pg (27.0-32.0); MCHC 33.4 g/dL (32.0-37.0); MCV 89.3 fL (80.0-97.0); Monocytes # (A) 1.10 10*3/uL (0.20-1.00); Monocytes % (A) 10.9 %; Neutrophils # (A) 6.09 10*3/uL (1.80-7.70); Neutrophils % (A) 60.2 %; Platelet Count 230 10*3/uL (140-440); RBC 3.75 10*6/uL (4.10-5.20); RDW 12.9 % (11.5-14.5); WBC 10.11 10*3/uL (4.50-10.00)
[2024-09-30 04:22] LABS: African American GFR (CKD) >90 (>60 ml/min/1.73 sqM); Anion Gap 7 mmol/L; Blood Urea Nitrogen 8 mg/dL (7-17); Calcium 7.9 mg/dL (8.4-10.2); Carbon Dioxide 24 mmol/L (22-30); Chloride 107 mmol/L (98-107); Glucose 179 mg/dL (74-99); Non-African American GFR(CKD) >90 (>60 ml/min/1.73 sqM); Potassium 4.1 mmol/L (3.5-5.1); Sodium 138 mmol/L (137-145)
[2024-09-30 06:04] LABS: Glucose,Whole Blood 143 mg/dL (70-110)
[2024-09-30 08:43] VITALS: BP 125/71; PULSE 60; RESP 18; TEMP 97.6
[2024-09-30] MEDS: diphenhydrAMINE 25 MG CAP PO STA (09:27)
[2024-09-30] MEDS ORDERED: VANCOMYCIN TROUGH DUE 1 EACH MISC MISCELLANE ONE (10:00)
[2024-09-30] MEDS ORDERED: diphenhydrAMINE 25 MG CAP PO PRN (11:59)
[2024-09-30 12:05] LABS: Glucose,Whole Blood 122 mg/dL (70-110)
--- NOTE | 2024-09-30 12:05 | P.PN ---
Subjective Progress Note Date: 09/30/24 Principal diagnosis: Right knee pain Patient seen and examined this morning. Patient is resting comfortably in bed. She states that she has been ambulatory to the restroom with a walker tolerating activity well. Surgical dressing to the right knee is dry and intact. There is some mild shadowing noted. Dressing will be changed later this afternoon. Patient does report that her pain is not currently managed, medications will be adjusted. Patient is also requesting stool softeners. Informed patient that physical therapy should be written to work with her today. Informed patient that if her pain is managed she would be cleared from a orthopedic standpoint for discharge home. Objective - Vital Signs Vital signs: Vital Signs Temp 97.6 F 09/30/24 07: Pulse 60 09/30/24 07: Resp 18 09/30/24 07:26 BP 125/71 09/30/24 07: Pulse Ox 98 09/30/24 07:26 FiO2 Intake & Output 09/29/24 09/30/24 09/30/24 18:59 06:59 18:59 Intake Total 900 Output Total 10 Balance 890 Intake: IV 900 Output: Estimated Blood Loss 10 Other: Voiding Method Toilet Toilet # Voids 1 1 - Exam Right Knee: Inspection: Surgical incision to the right knee, dressing is dry and intact with mild shadowing noted. Sensation: Sensation is equal, symmetric, bilaterally intact throughout the upper and lower extremities Palpation: Mild tenderness to palpation over the right knee secondary to surgical procedure. Range of motion: Limited ROM secondary to pain and stiffness due to surgical procedure. Motor: Right: shoulder abduction 5/5, elbow flexors 5/5, wrist dorsiflexors 5/5. finger abductor 5/5, bundler seasonal greenery 5/5, hip flexor 5/5, knee flexor 4/5, ankle dorsiflexor 5/5, ankle plantarflexion 5/5 and extensor hallucis 5/5. Neurovascular: Radial pulse intact, 2+ bilaterally. Cap refill under 3 seconds in digits upper extremities. - Labs CBC & Chem 7: 09/30/24 03:26 09/30/24 03:26 Labs: Abnormal Lab Results - Last 24 Hours (Table) 09/29/24 09/29/24 09/29/24 Range/Units 09:22 11:10 11:21 WBC (4.50-10.00) 10*3/uL RBC (4.10-5.20) 10*6/uL Hgb (12.0-15.0) g/dL Hct (37.2-46.3) % Monocytes # (0.20-1.00) 10*3/uL Eosinophils # (0.04-0.35) 10*3/uL Creatinine (0.52-1.04) mg/dL Glucose (74-99) mg/dL POC Glucose (mg/dL) 161 H 165 H (70-110) mg/dL Calcium (8.4-10.2) mg/dL Synovial Crystals CA Pyrophosphat A (None Seen) 09/29/24 09/29/24 09/30/24 Range/Units 18:23 20:23 03:26 WBC 10.11 H (4.50-10.00) 10*3/uL RBC 3.75 L (4.10-5.20) 10*6/uL Hgb 11.2 L (12.0-15.0) g/dL Hct 33.5 L (37.2-46.3) % Monocytes # 1.10 H (0.20-1.00) 10*3/uL Eosinophils # 0.01 L (0.04-0.35) 10*3/uL Creatinine (0.52-1.04) mg/dL Glucose (74-99) mg/dL POC Glucose (mg/dL) 280 H 179 H (70-110) mg/dL Calcium (8.4-10.2) mg/dL Synovial Crystals (None Seen) 09/30/24 09/30/24 Range/Units 03:26 06:03 WBC (4.50-10.00) 10*3/uL RBC (4.10-5.20) 10*6/uL Hgb (12.0-15.0) g/dL Hct (37.2-46.3) % Monocytes # (0.20-1.00) 10*3/uL Eosinophils # (0.04-0.35) 10*3/uL Creatinine 0.44 L (0.52-1.04) mg/dL Glucose 179 H (74-99) mg/dL POC Glucose (mg/dL) 143 H (70-110) mg/dL Calcium 7.9 L (8.4-10.2) mg/dL Synovial Crystals (None Seen) Microbiology - Last 24 Hours (Table) 09/29/24 11:10 Gram Stain - Preliminary Synovial Fluid 09/28/24 08:30 Gram Stain - Preliminary Aspirate Body Fluid Culture - Preliminary 09/28/24 09:23 Blood Culture - Preliminary Blood Assessment and Plan Assessment: Postop day 1: Right knee arthroscopic irrigation and debridement Plan: -Appreciate independent crop consultant and team management. -Activity: Ambulate QID, OOB all meals, up and about, limit lifting bending twisting to less than 5 lbs. Use walker or cane if needed for stability. -Daily PT/OT, increase ambulation strength and balance. -Pain control: Adequate at this time -Meds: reviewed -GI ppx: senna, Miralax -DVT PPX: Lovenox -Hygiene: Maintain incision clean and dry. May change dressing as needed, please document in notes if performed. -Encourage IS 10x/hr -Dispo: Anticipate discharge home later today vs tomorrow 10/01/24 *I reviewed and discussed this case with my attending Dr. Le, whom has reviewed this chart and films and is in agreement with assessment and plan of care as outlined above. I have personally seen and examined the patient, performed the documentation and the assessment and plan as written. Number of minutes spent on the visit: 20m.
[2024-09-30] MEDS: SENNOSIDES 8.6 MG TAB PO SCH (12:40)
[2024-09-30] MEDS: oxyCODONE-APAP 5-325MG 1 EACH TAB PO PRN (12:41)
--- NOTE | 2024-09-30 14:09 | P.PN ---
Subjective Progress Note Date: 09/30/24 Principal diagnosis: Right knee pain and swelling x 3 days Patient is a 53-year-old female with a past medical history significant for type IV diabetes mellitus hypertension CHF history of thyroidectomy presenting to the hospital for evaluation of right knee pain and swelling that apparently has been going on for the last 3 days patient denies any history of any trauma mention she noticed the pain when she was walking in [employer] shopping and subsequent noticed having worsening pain with associated swelling patient describes the pain to be sharp almost under 10 severity and unable to bear any weight on the right leg patient on presentation to the hospital did have a temperature of 100.4 F patient was tachycardic but not hypotensive or hypoxic did have white count 10.05 BUN/creatinine electrolytes and liver enzymes are normal patient has been evaluated by orthopedics and did have aspiration of the right knee fluid was cloudy [place] was 33782 with 90% PMN blood and fluid culture has been obtained patient was empirically started on vancomycin infectious disease was consulted for further management of antibiotic therapy On today's evaluation that is 09/30/2024, yesterday she underwent synovectomy and irrigation right knee. She does have improvement of knee pain postoperatively with analgesics. She is afebrile and she is SpO2 saturation 98% on room air. Denies any other chest pain, dyspnea, nausea, vomiting or diarrhea. WBC 10.1, creatinine 0.44. Synovial crystal calcium pyrophosphate found. Objective - Vital Signs Vital signs: Vital Signs Temp 97.6 F 09/30/24 07:26 Pulse 60 09/30/24 07:26 Resp 18 09/30/24 07:26 BP 125/71 09/30/24 07:26 Pulse Ox 98 09/30/24 07:26 FiO2 Intake & Output 09/29/24 09/30/24 09/30/24 18:59 06:59 18:59 Intake Total 900 Output Total 10 Balance 890 Intake: IV 900 Output: Estimated Blood Loss 10 Other: Voiding Method Toilet Toilet # Voids 1 1 1 - Exam GENERAL DESCRIPTION: An middle-aged female lying in bed in no distress RESPIRATORY SYSTEM: Unlabored breathing , decreased breath sounds at bases HEART: S1 S2 regular rate and rhythm ABDOMEN: Soft , no tenderness EXTREMITIES: No edema feet, right knee wrapped in dressings with ice packs - Labs CBC & Chem 7: 09/30/24 03:26 09/30/24 03:26 Labs: Abnormal Lab Results - Last 24 Hours (Table) 09/29/24 09/29/24 09/29/24 Range/Units 11:10 18:23 20:23 WBC (4.50-10.00) 10*3/uL RBC (4.10-5.20) 10*6/uL Hgb (12.0-15.0) g/dL Hct (37.2-46.3) % Monocytes # (0.20-1.00) 10*3/uL Eosinophils # (0.04-0.35) 10*3/uL Creatinine (0.52-1.04) mg/dL Glucose (74-99) mg/dL POC Glucose (mg/dL) 280 H 179 H (70-110) mg/dL Calcium (8.4-10.2) mg/dL Synovial Crystals CA Pyrophosphat A (None Seen) 09/30/24 09/30/24 09/30/24 Range/Units 03:26 03:26 06:03 WBC 10.11 H (4.50-10.00) 10*3/uL RBC 3.75 L (4.10-5.20) 10*6/uL Hgb 11.2 L (12.0-15.0) g/dL Hct 33.5 L (37.2-46.3) % Monocytes # 1.10 H (0.20-1.00) 10*3/uL Eosinophils # 0.01 L (0.04-0.35) 10*3/uL Creatinine 0.44 L (0.52-1.04) mg/dL Glucose 179 H (74-99) mg/dL POC Glucose (mg/dL) 143 H (70-110) mg/dL Calcium 7.9 L (8.4-10.2) mg/dL Synovial Crystals (None Seen) 09/30/24 Range/Units 11:57 WBC (4.50-10.00) 10*3/uL RBC (4.10-5.20) 10*6/uL Hgb (12.0-15.0) g/dL Hct (37.2-46.3) % Monocytes # (0.20-1.00) 10*3/uL Eosinophils # (0.04-0.35) 10*3/uL Creatinine (0.52-1.04) mg/dL Glucose (74-99) mg/dL POC Glucose (mg/dL) 122 H (70-110) mg/dL Calcium (8.4-10.2) mg/dL Synovial Crystals (None Seen) Microbiology - Last 24 Hours (Table) 09/29/24 11:10 Gram Stain - Preliminary Synovial Fluid 09/28/24 08:30 Gram Stain - Preliminary Aspirate Body Fluid Culture - Preliminary 09/28/24 09:23 Blood Culture - Preliminary Blood Assessment and Plan (1) SIRS (systemic inflammatory response syndrome) Status: Acute Code(s): R65.10 - SIRS OF NON-INFECTIOUS ORIGIN W/O ACUTE ORGAN DYSFUNCTION SNOMED Code(s): 286677729 (2) Pseudogout Status: Inactive Code(s): M11.20 - OTHER CHONDROCALCINOSIS, UNSPECIFIED SITE SNOMED Code(s): 324729894 Plan: 1patient presents to hospital with right knee pain swelling in this patient also have a low-grade fever mildly elevated white count concern for possible septic arthritis patient is status post aspiration of the right knee which was cloudy however the white count is only 24,000 and the typical knee septic arthritis white count usually elevated more than 50,000 making septic arthritis to be less likely but not entirely excluded 2-crystals from right knee with calcium pyrophosphate suggesting pseudogout 3-will discontinue IV vancomycin, no antibiotics needed on discharge Jake Mathis MD Internal Medicine Resident, PGY2 Infectious disease service Patient was personally seen and examined with the resident physician patient is afebrile with overall improvement in the right knee pain culture has been ne gative so far operative and clinical findings are not suggestive of septic arthritis vancomycin has been discontinued no need for antibiotics on discharge darrin arenas MD Time with Patient: Less than 30
--- NOTE | 2024-09-30 16:09 | P.DS ---
Providers Date of admission: 09/28/24 08:33 Expected date of discharge: 09/30/24 Attending physician: Sosa Perez MD Consults: 09/28/24 08:30 Consult Physician Urgent Consulting Provider: Cruzito Horta Consult Reason/Comments: right knee pain, fever, prepatellar effusion Do you want consulting provider notified?: Yes 09/28/24 13:26 Consult Physician Routine Consulting Provider: Cindy Saeed Consult Reason/Comments: Possible sepsis of the right knee Do you want consulting provider notified?: Yes Primary care physician: Navjot Verde Hospital Course: Discharge Diagnosis: Pseudogout of right knee found s/p OR washout Osteoarthritis of the right knee Right lower extremity radiculopathy with weakness Diabetes mellitus type 2 HTN CHF, not in exacerbation HLD Thyroid cancer status post thyroidectomy Constipation Hospital Course: Patient is a 53-year-old female with hypertension, CHF, diabetes mellitus type 2, hyperlipidemia, thyroidectomy in July and thryoid cancer who presented to the ED with swollen painful right knee for 3 days. She subsequently was unable to walk, bend and put pressure on the leg. She states she had no known trauma, or known triggers. She tried ice and tramadol which did not improve pain or swelling. Significant ED labs findings include WBC 10.0. hgb 13.5, sodium 138, potassium 3.7, bicarb 20, glucode 167, CRP 2.5. X-ray of right knee showed no gross acute bony abnormality, arthritic changes, small to moderate joint effusion/suprapatellar swelling. Ultrasound venous doppler with no evidence of DVT. While inpatient, pt was suspected to have septic versus inflammatory arthritis and was placed on vancomycin and then a right knee atheroscopic irrigation and debridement with synovectomy was completed on 09/29/2024 and found to calcium pyrophosphate deposition and chondral changes. Pt was able to manage the procedure well with some soreness and is able to ambulate with a walker. On discharge, WBC 10.11, hgb 11.2 and BMP unremarkable. Pt's new medications include percocet 7.5mg po q4hr prn and senokot 8.6mg po BID prn. Follow-up with PCP, Dr. Verde, in 1-2 days, and orthopedic surgery (YASMANY Felipe) on 7/16/25. Patient seen and examined at bedside. Pt is stable for discharge. Vital signs reviewed and stable. Physical examination: Vital signs reviewed General: non toxic, no distress, appears at stated age, normal weight Derm: no unusual rashes/lesions, warm Head: atraumatic, normocephalic, symmetric Eyes: EOMI, anicteric sclera, pupils equal round reactive to light ENT: Nose and ears atraumatic Mouth: no lip lesion, mucus membranes moist Cardiovascular: S1S2 reg, no murmur, 1+ bilateral pitting edema Lungs: CTA bilateral, no rhonchi, no rales, no accessory muscle use Abdominal: soft, nontender to palpation, no guarding Ext: muscle strength 5 out of 5 in all 4 extremities grossly, no gross muscle atrophy. Right knee in bandage with some sanguineous drainage. Neuro: CN II-XI grossly intact, no gross focal neuro deficits Psych: Alert, oriented to person, place, and time A total of greater than 30 minutes of time were spent preparing this complex discharge summary. Patient was discharged on 09/30/2024 at 1037. Pearl Little DO PGY-1 IM Dictation was produced using [employer] dictation software. please excuse any grammatical, word or spelling errors. I have seen and evaluated the patient today. Discussed with the resident and agree with the residents finding and plan as documented in the resident's note. Changes highlighted in blue font. Patient Condition at Discharge: Stable Plan - Discharge Summary New Discharge Prescriptions: New oxyCODONE-APAP 7.5-325MG [Percocet 7.5-325 mg] 1 tab PO Q4HR PRN 3 Days #18 tab PRN Reason: Breakthrough Pain Sennosides [Senokot] 8.6 mg PO BID PRN #90 tab PRN Reason: Constipation Continue Potassium Chloride [Klor-Con M20] 20 meq PO DAILY Empagliflozin [Jardiance] 25 mg PO DAILY traMADol HCl [Ultram] 50 mg PO QID PRN PRN Reason: Pain buPROPion HCL [Wellbutrin SR] 150 mg PO BID Liothyronine Sodium [Cytomel] 25 mcg PO BID Metoprolol Tartrate [Lopressor] 50 mg PO BID Ergocalciferol [Vitamin D2 (1250 Mcg = 72270 Iu)] 1,250 mcg PO MO Dulaglutide [Trulicity] 3 mg SQ FARRAR Atorvastatin [Lipitor] 40 mg PO HS Discharge Medication List Atorvastatin [Lipitor] 40 mg PO HS 09/28/24 [History] Dulaglutide [Trulicity] 3 mg SQ FARRAR 09/28/24 [History] Empagliflozin [Jardiance] 25 mg PO DAILY 09/28/24 [History] Ergocalciferol [Vitamin D2 (1250 Mcg = 18156 Iu)] 1,250 mcg PO MO 09/28/24 [H istory] Liothyronine Sodium [Cytomel] 25 mcg PO BID 09/28/24 [History] Metoprolol Tartrate [Lopressor] 50 mg PO BID 09/28/24 [History] Potassium Chloride [Klor-Con M20] 20 meq PO DAILY 09/28/24 [History] buPROPion HCL [Wellbutrin SR] 150 mg PO BID 09/28/24 [History] traMADol HCl [Ultram] 50 mg PO QID PRN 09/28/24 [History] Sennosides [Senokot] 8.6 mg PO BID PRN #90 tab 09/30/24 [Rx] oxyCODONE-APAP 7.5-325MG [Percocet 7.5-325 mg] 1 tab PO Q4HR PRN 3 Days #18 tab 09/30/24 [Rx] Follow up Appointment(s)/Referral(s): Navjot Verde MD [Primary Care Provider] - 1-2 days (office busy at time of discharge Please call to schedule appointment ) Miguel Wiseman, EFRAIN [PHYSICIAN DIRECTOR DATABASE] - 10/14/24 9:50 am [facility] [NON-STAFF] - 1 Week Patient Instructions/Handouts: *Surgery [facility] - (Adv Ortho) Arthroscopic Knee Post-Op Instructions Discharge Disposition: HOME WITH HOME HEALTH SERVICES
== END 2024-09-30 13:33 | disposition home or self-care (01) | DRG 313 ==
LOC: EC 05:02 → 6NMEDSUR 08:32 → OBSVTOIN 08:33 → 1SOBS 11:06 → 4SSUR 09-29 17:29
PROVIDERS: ADMIT Internal Medicine; ATTEND Internal Medicine
PROC: 3E1U48X Irrigation of Joints using Irrigating Substance, Percutaneous Endoscopic Approach, Diagnostic (ICD-10-PCS; principal; 2024-09-29 10:00)
PROC: 0SBC4ZZ Excision of Right Knee Joint, Percutaneous Endoscopic Approach (ICD-10-PCS; principal; 2024-09-29 10:00)
DX: M11.261 Other chondrocalcinosis, right knee (principal); I11.0 Hypertensive heart disease with heart failure; I50.9 Heart failure, unspecified; M65.961 Unspecified synovitis and tenosynovitis, right lower leg; E78.5 Hyperlipidemia, unspecified; Z79.84 Long term (current) use of oral hypoglycemic drugs; Z79.85 Long-term (current) use of injectable non-insulin antidiabetic drugs; Z79.899 Other long term (current) drug therapy; Z85.850 Personal history of malignant neoplasm of thyroid; E11.9 Type 2 diabetes mellitus without complications; K59.00 Constipation, unspecified; M17.11 Unilateral primary osteoarthritis, right knee; M54.10 Radiculopathy, site unspecified; R65.10 Systemic inflammatory response syndrome (SIRS) of non-infectious origin without acute organ dysfunction; G89.29 Other chronic pain; M54.50 Low back pain, unspecified
CPT/HCPCS: 36415; 80048; 80053; 80202; 82945; 83605; 84157; 84439; 84443; 85025; 85652; 86140; 87040; 87070; 87075; 87205; 89050; 89060; 96365; 96375; 99285

== ENCOUNTER → 2024-10-14 | Outpatient (CLI) | payer OTHER ==
[2024-10-14 15:41] LABS: Calcium 8.5 mg/dL (8.7-10.3); Magnesium 1.8 mg/dL (1.5-2.4)
[2024-10-14 15:52] LABS: T4, Free (Free Thyroxine) <0.11 ng/dL (0.80-1.80)
== END | disposition home or self-care (01) ==
LOC: LABWHC1 08:50
PROVIDERS: ATTEND Internal Medicine
DX: C73 Malignant neoplasm of thyroid gland (principal)
CPT/HCPCS: 36415; 82310; 82570; 83735; 83789; 84100; 84432; 84439; 84443; 86800

== ENCOUNTER → 2024-10-21 | Outpatient (CLI) | payer OTHER ==
--- NOTE | 2024-10-22 09:54 | NM ---
EXAMINATION TYPE: NM thyroid uptake only single DATE OF EXAM: 10/22/2024 COMPARISON: NONE CLINICAL INDICATION: Female, 54 years old with history of C73 MALIGNANT NEOPLASM OF THYROID GLAND; Following administration of 102.5 uCi I-123 capsule, uptake measurements are performed. FINDINGS AND IMPRESSION: No images are taken. Uptake is very low, 1.1% at 24 hours. [facility], Workstation: [facility] SquareHARRY, 10/22/2024 9:51 AM
== END | disposition home or self-care (01) ==
LOC: RADNMMAIN 08:13
PROVIDERS: ATTEND Internal Medicine
DX: C73 Malignant neoplasm of thyroid gland (principal)
CPT/HCPCS: 78012; A9516

== ENCOUNTER → 2024-10-26 | Outpatient (CLI) | payer OTHER ==
--- NOTE | 2024-10-27 09:50 | NM ---
EXAMINATION TYPE: NM Thyroid Iodine Therapy Oral DATE OF EXAM: 10/27/2024 COMPARISON: Uptake 10/21/2024 CLINICAL INDICATION: Female, 54 years old with history of C73 MALIGNANT NEOPLASM OF THYROID GLAND; PH H, patient with history of multiple thyroid nodules causing difficulty swallowing. Patient status pos t thyroidectomy in July 2024 found to have multifocal papillary thyroid cancer with invasive follicula r variant. RADIOTRACER: 94.3 mCi I-131. TECHNIQUE: The patient was instructed to hold any thyroid hormone supplementation, instructed and man aged by Dr. Kelley's office. TSH was checked and was greater than 90. Patient is on a low iodine diet . Dose was prescribed (written directive) by an Authorized User in conjunction with treatment request b khris Kelley. Risks, benefits, and potential complications of radioactive I-131 therapy were discussed in detail wi th the patient by myself and the nuclear fuels research engineer. Verbal and written informed consent wer e obtained. Written instructions were given for radiation safety precautions to be observed for 4 day s outpatient. The patient specific exposure calculations were done by RSO to ensure estimated max dose to any indiv idual exposed to the patient was less than 5 mSv. The patient was specifically advised to avoid close contact with children, women, and other members of public. Dose was verified in dose caliber and patient was given oral I-131 pill under the supervision of me alejo cleaning the nuclear fuels research engineer. There were no immediate complications. IMPRESSION: Outpatient 94.3 mCi I-131 oral therapy capsule for thyroid cancer remnant ablation. The p atient will follow-up with Dr. Kelley and also in 2 days for post ablation whole body scan. [facility], , 10/27/2024 9:48 AM
== END | disposition home or self-care (01) ==
LOC: RADNMMAIN 12:29
PROVIDERS: ATTEND Internal Medicine
DX: C73 Malignant neoplasm of thyroid gland (principal); E89.0 Postprocedural hypothyroidism; Z85.850 Personal history of malignant neoplasm of thyroid; Z87.59 Personal history of other complications of pregnancy, childbirth and the puerperium
CPT/HCPCS: 79005; A9517

== ENCOUNTER → 2024-10-28 | Outpatient (CLI) | payer OTHER ==
--- NOTE | 2024-10-30 07:39 | NM ---
EXAMINATION TYPE: NM I-131 Whole Body Imaging DATE OF EXAM: 10/29/2024 COMPARISON: Correlation uptake 10/21/2024 HISTORY: Female, 54 years old with history of C73 MALIGNANT NEOPLASM OF THYROID GLAND; [facility], patient w ith history of multiple thyroid nodules causing difficulty swallowing. Patient status post thyroidect andre in July 2024 found to have multifocal papillary thyroid cancer with invasive follicular variant. TECHNIQUE: Following the oral administration of 94.3 mCi I-131 on 10/28/2024 whole body scan was perf ormed 2 and 3 days after radiotracer administration. Findings: There is physiologic uptake within the salivary glands, nasopharynx, stomach, colon, and bladder. 2 focal areas of intense activity along the midline neck probably corresponding to the thyroidectomy bed. As one focus is more superior in location, it may represent a small focus of ectopic thyroid tis taylor. Findings are most suggestive of remnant uptake and ablation. Otherwise, no abnormal tracer activity is seen throughout the body. IMPRESSION: 1. Focal activity along the midline neck most compatible with remnant uptake and ablation. 2. No convincing abnormal activity elsewhere within the neck or remainder of the body to suggest meta static disease. [facility], , 10/30/2024 7:36 AM
== END | disposition home or self-care (01) ==
LOC: RADNMMAIN 13:00
PROVIDERS: ATTEND Internal Medicine
DX: C73 Malignant neoplasm of thyroid gland (principal)
CPT/HCPCS: 78018